=== PATIENT | female | born 1990 | race Caucasian/White ===

== ENCOUNTER 2018-07-06 18:58 | Inpatient (IN) | payer BC, MEDICAID ==
[~2018-07-06] VITALS: Ht 167.6 cm; Wt 91.3 kg
[2018-07-06 19:22] LABS: BASOPHILS ABSOLUTE AUTO 0.02 K/mm3 (0.00-0.23); BASOPHILS PERCENT AUTO 0 % (0-2); EOSINOPHILS ABSOLUTE AUTO 0.07 K/mm3 (0.00-0.68); EOSINOPHILS PERCENT AUTO 1 % (0-6); Hematocrit 39.1 % (33.0-51.0); Hemoglobin 13.6 g/dL (11.5-16.0); IMMATURE GRAN ABSOLUTE AUTO 0.05 K/mm3 (0.00-0.10); IMMATURE GRAN PERCENT AUTO 0 % (0-1); LYMPHOCYTES ABSOLUTE AUTO 2.29 K/mm3 (0.84-5.20); LYMPHOCYTES PERCENT AUTO 15 % (21-46); MONOCYTES ABSOLUTE AUTO 0.64 K/mm3 (0.16-1.47); MONOCYTES PERCENT AUTO 4 % (4-13); Mean Corpuscular HGB 29.7 pg (26.0-34.0); Mean Corpuscular HGB Conc 34.8 g/dL (31.5-36.5); Mean Corpuscular Volume 85 fL (80-100); Mean Platelet Volume 8.7 fL (9.1-12.4); NEUTROPHILS ABSOLUTE AUTO 11.94 K/mm3 (1.96-9.15); NEUTROPHILS PERCENT AUTO 80 % (41-73); Platelet Count 324 K/mm3 (150-400); RDW Coefficient Variation 13.1 % (11.7-14.2); RDW Standard Deviation 40.3 fL (35.1-46.3); Red Blood Cell Count 4.58 M/mm3 (3.80-5.20); White Blood Cell Count 15.01 K/mm3 (4.00-11.30)
[2018-07-06] MEDS ORDERED: Verotin-Gr Cap1 EACH PO (20:22)
[2018-07-06] MEDS ORDERED: FOLI1 PO (20:23)
[2018-07-06] MEDS ORDERED: ALBU90OI61 (20:24)
[2018-07-07 05:59] LABS: BASOPHILS ABSOLUTE AUTO 0.02 K/mm3 (0.00-0.23); BASOPHILS PERCENT AUTO 0 % (0-2); EOSINOPHILS ABSOLUTE AUTO 0.03 K/mm3 (0.00-0.68); EOSINOPHILS PERCENT AUTO 0 % (0-6); Hematocrit 34.4 % (33.0-51.0); Hemoglobin 11.6 g/dL (11.5-16.0); IMMATURE GRAN ABSOLUTE AUTO 0.05 K/mm3 (0.00-0.10); IMMATURE GRAN PERCENT AUTO 0 % (0-1); LYMPHOCYTES ABSOLUTE AUTO 1.53 K/mm3 (0.84-5.20); LYMPHOCYTES PERCENT AUTO 11 % (21-46); MONOCYTES ABSOLUTE AUTO 0.73 K/mm3 (0.16-1.47); MONOCYTES PERCENT AUTO 5 % (4-13); Mean Corpuscular HGB 29.7 pg (26.0-34.0); Mean Corpuscular HGB Conc 33.7 g/dL (31.5-36.5); Mean Platelet Volume 8.7 fL (9.1-12.4); NEUTROPHILS ABSOLUTE AUTO 11.25 K/mm3 (1.96-9.15); NEUTROPHILS PERCENT AUTO 83 % (41-73); Platelet Count 242 K/mm3 (150-400); RDW Coefficient Variation 13.3 % (11.7-14.2); RDW Standard Deviation 42.8 fL (35.1-46.3); Red Blood Cell Count 3.91 M/mm3 (3.80-5.20); White Blood Cell Count 13.61 K/mm3 (4.00-11.30)
[2018-07-07 06:00] LABS: Mean Corpuscular Volume 88 fL (80-100)
--- NOTE | 2018-07-07 07:15 | NUR ---
assumed care of pt, pt is sleeping
--- NOTE | 2018-07-07 10:33 | NUR ---
MEDICATED WITH 1 PERCOCET, JUST FINISHED VERY CRAMPY, GAVE 1 PEROCET, PT AWARE CRAMPING WILL GET BETTER IN 10-15 MINUTES AFTER DONE FEEDING
[2018-07-07] MEDS ORDERED: IBUP800 PO (10:57)
[2018-07-07] MEDS ORDERED: Percocet 5-3251 EACH PO (13:04)
--- NOTE | 2018-07-07 21:54 | NUR ---
DICHARGE INSTRUCTIONS GIVEN. ALL QUESTIONS ANSWERED. PATIENT DISCHARGED AT 2130.
== END 2018-07-07 21:36 | disposition home or self-care (01) | DRG 807 ==
LOC: BC 18:58
PROVIDERS: Registered Nurse Community Health; ADMIT Nurse Practitioner Obstetrics & Gynecology
PROC: 10E0XZZ Delivery of Products of Conception, External Approach (ICD-10-PCS; principal; 2018-07-07)
PROC: 0KQM0ZZ Repair Perineum Muscle, Open Approach (ICD-10-PCS; 2018-07-07)
PROC: 6A550ZT Pheresis of Cord Blood Stem Cells, Single (ICD-10-PCS; 2018-07-07)
DX: O99.52 Diseases of the respiratory system complicating childbirth (principal); Z37.0 Single live birth; J45.909 Unspecified asthma, uncomplicated; Z86.59 Personal history of other mental and behavioral disorders; Z3A.39 39 weeks gestation of pregnancy; O70.1 Second degree perineal laceration during delivery
CPT/HCPCS: 36415; 85025; 86900; 86901; J0290; J1885; J2210; J2590; J3010; J7120

== ENCOUNTER → 2019-01-12 | Outpatient (CLI) | payer BC ==
[~2019-01-12] MED LIST: ALBU90OI61; FOLI1 PO; IBUP800 PO; Percocet 5-3251 EACH PO; Verotin-Gr Cap1 EACH PO
== END ==
LOC: LAB SHORT 11:55 → PLD 11:55
DX: D23.61 Other benign neoplasm of skin of right upper limb, including shoulder (principal)
CPT/HCPCS: 88305

== ENCOUNTER 2022-09-09 07:15 | Day surgery (SDC) | payer BC ==
[~2022-09-09] VITALS: Ht 167.6 cm; Wt 85.0 kg
[2022-09-09] MEDS ORDERED: OMEP20ER (07:48)
[2022-09-09] MEDS ORDERED: LORYNA (07:48)
[2022-09-09] MEDS ORDERED: VITAMIN D310 MC4 (07:49)
[2022-09-09 09:45] VITALS: BP 125/79
== END 2022-09-09 09:47 | disposition home or self-care (01) ==
LOC: ORSCSDS 07:15
PROVIDERS: Internal Medicine Gastroenterology
PROC: 0DB68ZX Excision of Stomach, Via Natural or Artificial Opening Endoscopic, Diagnostic (ICD-10-PCS; principal; 2022-09-09 08:45)
PROC: 0DB98ZX Excision of Duodenum, Via Natural or Artificial Opening Endoscopic, Diagnostic (ICD-10-PCS; principal; 2022-09-09 08:45)
PROC: 0DB58ZX Excision of Esophagus, Via Natural or Artificial Opening Endoscopic, Diagnostic (ICD-10-PCS; principal; 2022-09-09 08:45)
DX: K90.0 Celiac disease (principal); K31.9 Disease of stomach and duodenum, unspecified; K21.00 Gastro-esophageal reflux disease with esophagitis, without bleeding; K29.70 Gastritis, unspecified, without bleeding; K30 Functional dyspepsia; J45.909 Unspecified asthma, uncomplicated; Z79.899 Other long term (current) drug therapy
CPT/HCPCS: 88305; 88342; J2250; J2704; J7120

== ENCOUNTER → 2023-07-06 | Outpatient (CLI) | payer BC ==
[~2023-07-06] MED LIST changes: +LORYNA; +OMEP20ER; +VITAMIN D310 MC4; +Vistaril25 MG PO
[2023-07-06 16:33] LABS: BASOPHILS ABSOLUTE AUTO 0.01 K/mm3 (0.00-0.23); BASOPHILS PERCENT AUTO 0 % (0-2); EOSINOPHILS ABSOLUTE AUTO 0.11 K/mm3 (0.00-0.68); EOSINOPHILS PERCENT AUTO 1 % (0-6); Hematocrit 37.4 % (33.0-51.0); IMMATURE GRAN ABSOLUTE AUTO 0.04 K/mm3 (0.00-0.10); IMMATURE GRAN PERCENT AUTO 0 % (0-1); LYMPHOCYTES ABSOLUTE AUTO 2.86 K/mm3 (0.84-5.20); LYMPHOCYTES PERCENT AUTO 24 % (21-46); MONOCYTES ABSOLUTE AUTO 0.69 K/mm3 (0.16-1.47); MONOCYTES PERCENT AUTO 6 % (4-13); Mean Corpuscular HGB 29.3 pg (26.0-34.0); Mean Corpuscular HGB Conc 34.8 g/dL (31.5-36.5); Mean Corpuscular Volume 84 fL (80-100); Mean Platelet Volume 8.3 fL (9.1-12.4); NEUTROPHILS ABSOLUTE AUTO 8.22 K/mm3 (1.96-9.15); NEUTROPHILS PERCENT AUTO 69 % (41-73); Platelet Count 381 K/mm3 (150-400); RDW Coefficient Variation 12.7 % (11.7-14.2); RDW Standard Deviation 38.8 fL (35.1-46.3); Red Blood Cell Count 4.43 M/mm3 (3.80-5.20); White Blood Cell Count 11.93 K/mm3 (4.00-11.30)
[2023-07-06 17:26] LABS: Alanine Aminotransfer (ALT/SGP 32 U/L (12-78); Albumin, Blood 3.6 g/dL (3.4-5.0); Albumin/Globulin Ratio 0.9 (0.8-1.8); Alk Phos 75 U/L (50-136); Anion Gap 10 mmol/L (3-11); Aspartate Aminotrans (AST/SGOT 15 U/L (12-37); Bilirubin, Total 0.2 mg/dL (0.1-1.0); Blood Urea Nitrogen 15 mg/dL (8-24); Bun/Creatinine Ratio 19.9 (12.0-20.0); CHOL/HDL RATIO 2.6; CO2, Blood 22 mmol/L (21-32); Calcium, Blood 9.4 mg/dL (8.5-10.1); Chloride, Blood 112 mmol/L (98-108); Cholesterol 192 mg/dL (50-200); Creatinine, Blood 0.75 mg/dL (0.40-1.00); Globulin, Blood 3.8 g/dL (2.2-4.0); Glomerular Filtration Rate 108 (60-); Glucose, Blood 73 mg/dL (70-99); HDL Cholesterol 74 mg/dL (>39); Low Density Lipoprotein Chol 75 mg/dL (0-110); Potassium, Blood 3.5 mmol/L (3.5-5.5); Sodium, Blood 140 mmol/L (136-145); Total Protein, Blood 7.4 g/dL (6.4-8.2); Triglycerides 217 mg/dL (30-140); Very Low Density Lipoprot Chol 43 mg/dL (6-28)
[2023-07-07 16:05] LABS: HEPATITIS A ANTIBODY, IGM Negative (Negative); HEPATITIS B CORE ANTIBODY, IGM Negative (Negative); HEPATITIS B SURFACE ANTIGEN Negative (Negative); HEPATITIS C AB CIA INTERP Negative (Negative); HEPATITIS C ANTIBODY CIA INDEX <0.02 IV
== END | disposition home or self-care (01) ==
LOC: LAB SHORT 15:16 → LAB 15:16
PROVIDERS: Family Medicine
DX: Z11.59 Encounter for screening for other viral diseases (principal); Z79.899 Other long term (current) drug therapy
CPT/HCPCS: 80053; 80061; 80074; 82306; 83036; 84443; 85025

== ENCOUNTER → 2023-09-14 | Outpatient (CLI) | payer BC ==
[2023-09-14 18:24] LABS: Alanine Aminotransfer (ALT/SGP 27 U/L (12-78); Albumin, Blood 3.6 g/dL (3.4-5.0); Albumin/Globulin Ratio 0.9 (0.8-1.8); Alk Phos 94 U/L (50-136); Anion Gap 10 mmol/L (3-11); Aspartate Aminotrans (AST/SGOT 17 U/L (12-37); Bilirubin, Total 0.5 mg/dL (0.1-1.0); Blood Urea Nitrogen 10 mg/dL (8-24); CHOL/HDL RATIO 2.6; CO2, Blood 26 mmol/L (21-32); Calcium, Blood 8.8 mg/dL (8.5-10.1); Chloride, Blood 105 mmol/L (98-108); Cholesterol 164 mg/dL (50-200); Creatinine, Blood 0.84 mg/dL (0.40-1.00); Globulin, Blood 3.9 g/dL (2.2-4.0); Glomerular Filtration Rate 94 (60-); Glucose, Blood 88 mg/dL (70-99); HDL Cholesterol 64 mg/dL (>39); Low Density Lipoprotein Chol 66 mg/dL (0-110); Potassium, Blood 3.8 mmol/L (3.5-5.5); Sodium, Blood 137 mmol/L (136-145); Total Protein, Blood 7.5 g/dL (6.4-8.2); Triglycerides 172 mg/dL (30-140); Very Low Density Lipoprot Chol 34 mg/dL (6-28)
== END | disposition home or self-care (01) ==
LOC: LAB 11:30 → LAB SHORT 11:30
PROVIDERS: Family Medicine
DX: F10.10 Alcohol abuse, uncomplicated (principal)
CPT/HCPCS: 80053; 80061

== ENCOUNTER → 2025-01-10 | Outpatient (CLI) | payer BC ==
[2025-01-10 19:58] LABS: CHOL/HDL RATIO 2.9; Cholesterol 150 mg/dL (50-200); HDL Cholesterol 51 mg/dL (>39); LDL Direct Measurement 59 mg/dL (0-130); LDL/HDL RATIO 0.5; Low Density Lipoprotein Chol 24 mg/dL (0-110); Thyroid Stimulating Hormone 1.730 uIU/mL (0.360-4.800); Triglycerides 375 mg/dL (30-140); Very Low Density Lipoprot Chol 75 mg/dL (6-28)
== END ==
LOC: LAB 18:36 → LAB SHORT 18:36
PROVIDERS: Family Medicine
DX: Z13.0 Encounter for screening for diseases of the blood and blood-forming organs and certain disorders involving the immune mechanism (principal); Z13.21 Encounter for screening for nutritional disorder; Z13.228 Encounter for screening for other metabolic disorders; Z13.29 Encounter for screening for other suspected endocrine disorder
CPT/HCPCS: 80061; 82306; 83721; 84443